=== PATIENT | male | born 1990 | race Two or more races ===

== ENCOUNTER 2021-12-28 11:53 | Emergency (ER) | payer OTHER ==
[~2021-12-28] VITALS: Ht 167.6 cm; Wt 79.4 kg
[2021-12-28] MEDS ORDERED: ONDANSETRON HCL INJ 2MG/ML 2ML 2 MG/ML VIAL IV STA (13:12)
[2021-12-28] MEDS ORDERED: Morphine 4mg INJECTION 4 MG/ML INJ IV ONE (13:15)
[2021-12-28] MEDS ORDERED: Morphine 4mg INJECTION 4 MG/ML INJ ONE (13:42)
[2021-12-28] MEDS ORDERED: ONDANSETRON HCL INJ 2MG/ML 2ML 2 MG/ML VIAL ONE (13:43)
[2021-12-28] MEDS ORDERED: ONDANSETRON ODT4 MG PO (15:46)
[2021-12-28] MEDS ORDERED: DICYCLOMINE HCL20 MG PO (15:46)
[2021-12-28] MEDS ORDERED: IOPAMIDOL 370 MG/ML 100 ML INFUS..BTL INJ ONE (15:52)
[2021-12-28 16:01] VITALS: BP 134/71
== END 2021-12-28 16:03 | disposition home or self-care (01) ==
LOC: FSED 12:09
DX: R10.31 Right lower quadrant pain (principal); F17.210 Nicotine dependence, cigarettes, uncomplicated
CPT/HCPCS: 74177; 83605; 99284; J2270; J2405; Q9967